=== PATIENT | female | born 1985 | race Caucasian/White ===

== ENCOUNTER 2020-06-07 17:45 | Emergency (ER) | payer OTHER ==
[2020-06-07 17:50] VITALS: TEMP 98.5
[2020-06-07] MEDS ORDERED: SODIUM CHLORIDE 0.9% 1,000 ML IV STA ×3 (18:03→19:18)
[2020-06-07] MEDS ORDERED: PYRIDOXINE 100 MG/ML 1 ML VIAL IVP STA (18:03)
[2020-06-07] MEDS ORDERED: PANTOPRAZOLE 40 MG/10 ML VIAL IVP STA (18:03)
[2020-06-07] MEDS ORDERED: diphenhydrAMINE 50 MG/ML 1 ML VIAL IVP STA (18:03)
[2020-06-07] MEDS ORDERED: ONDANSETRON 4 MG/2 ML VIAL IVP STA (18:03)
--- NOTE | 2020-06-07 18:04 | ED ---
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 Patient is no new pregnancies. She is wrong 6 weeks . No recent evaluations no prior evaluation is not taking anything at home for nausea and vomiting. No fevers no abdominal pain or vaginal bleeding MD complaint: nausea, vomiting -: days(s) Description of Vomiting: bloody Associated Abdominal Pain: No Radiation: none Severity: mild Severity scale (1-10): 2 Quality: aching Consistency: constant Improves with: none Worsens with: eating Associated Symptoms: loss of appetite, nausea/vomiting, weakness - Related Data Previous Rx's Medication Instructions Recorded Doxylamine Succinate [Unisom] 25 mg PO TID #90 tablet 06/07/20 Doxylamine Succinate/Vit B6 1 each PO BID #60 tab.ir.dr 06/07/20 [Bonjesta ER 20-20 mg Tablet] Pyridoxine [Vitamin B-6] 50 mg PO BID #60 tablet 06/07/20 Allergies Allergy/AdvReac Type Severity Reaction Status Date / Time No Known Allergies Allergy Verified 06/07/20 17:50 Review of Systems ROS Statement: Those systems with pertinent positive or pertinent negative responses have been documented in the HPI. ROS Other: All systems not noted in ROS Statement are negative. Past Medical History Past Medical History: No Reported History History of Any Multi-Drug Resistant Organisms: None Reported Past Surgical History: Breast Surgery, Section Past Psychological History: No Psychological Hx Reported Smoking Status: Never smoker Past Alcohol Use History: Occasional Past Drug Use History: None Reported General Exam Limitations: no limitations General appearance: alert, in no apparent distress Head exam: Present: atraumatic, normocephalic, normal inspection Eye exam: Present: normal appearance, PERRL, EOMI. Absent: scleral icterus, conjunctival injection, periorbital swelling ENT exam: Present: normal exam, mucous membranes moist Neck exam: Present: normal inspection. Absent: tenderness, meningismus, lymphadenopathy Respiratory exam: Present: normal lung sounds bilaterally. Absent: respiratory distress, wheezes, rales, rhonchi, stridor Cardiovascular Exam: Present: regular rate, normal rhythm, normal heart sounds. Absent: systolic murmur, diastolic murmur, rubs, gallop, clicks GI/Abdominal exam: Present: soft, normal bowel sounds. Absent: distended, t enderness, guarding, rebound, rigid Extremities exam: Present: normal inspection, full ROM, normal capillary refill. Absent: tenderness, pedal edema, joint swelling, calf tenderness Back exam: Present: normal inspection Neurological exam: Present: alert, oriented X3, CN II-XII intact Psychiatric exam: Present: normal affect, normal mood Skin exam: Present: warm, dry, intact, normal color. Absent: rash Course Vital Signs 06/07/20 06/07/20 17:48 19:35 Temperature 98.5 F Pulse Rate 73 70 Respiratory 16 18 Rate Blood Pressure 128/86 123/75 O2 Sat by Pulse 98 100 Oximetry - Reevaluation(s) Reevaluation #1: medical record is reviewed patient symptoms siginficantly improved informed patient of results, questions answered and ok for discharge, Medical Decision Making - Medical Decision Making 34 female with hyperemesis at 6 weeks of secondary to 20 gestation. Patient informed of results and can be discharged home - Lab Data Result diagrams: 06/07/20 18:27 06/07/20 18:27 Lab Results 06/07/20 06/07/20 06/07/20 Range/Units 18:27 18:27 18:27 WBC 9.8 (3.8-10.6) k/uL RBC 5.04 (3.80-5.40) m/uL Hgb 14.6 (11.4-16.0) gm/dL Hct 44.5 (34.0-46.0) % MCV 88.4 (80.0-100.0) fL MCH 29.0 (25.0-35.0) pg MCHC 32.8 (31.0-37.0) g/dL RDW 13.3 (11.5-15.5) % Plt Count 248 (150-450) k/uL Neutrophils % 79 % Lymphocytes % 16 % Monocytes % 3 % Eosinophils % 0 % Basophils % 0 % Neutrophils # 7.7 (1.3-7.7) k/uL Lymphocytes # 1.6 (1.0-4.8) k/uL Monocytes # 0.3 (0-1.0) k/uL Eosinophils # 0.0 (0-0.7) k/uL Basophils # 0.0 (0-0.2) k/uL PT 10.5 (9.0-12.0) sec INR 1.0 (<1.2) APTT 21.6 L (22.0-30.0) sec Sodium 134 L (137-145) mmol/L Potassium 3.8 (3.5-5.1) mmol/L Chloride 102 (98-107) mmol/L Carbon Dioxide 19 L (22-30) mmol/L Anion Gap 13 mmol/L BUN 9 (7-17) mg/dL Creatinine 0.55 (0.52-1.04) mg/dL Est GFR (CKD-EPI)AfAm >90 (>60 ml/min/1.73 sqM) Est GFR (CKD-EPI)NonAf >90 (>60 ml/min/1.73 sqM) Glucose 96 (74-99) mg/dL Calcium 9.6 (8.4-10.2) mg/dL Phosphorus 3.5 (2.5-4.5) mg/dL Magnesium 1.9 (1.6-2.3) mg/dL Total Bilirubin 0.7 (0.2-1.3) mg/dL AST 28 (14-36) U/L ALT 32 (4-34) U/L Alkaline Phosphatase 60 (38-126) U/L Total Protein 7.6 (6.3-8.2) g/dL Albumin 4.4 (3.5-5.0) g/dL HCG, Quant 939457.0 mIU/mL Urine Color Urine Appearance (Clear) Urine pH (5.0-8.0) Ur Specific [place] (1.001-1.035) Urine Protein (Negative) Urine Glucose (UA) (Negative) Urine Ketones (Negative) Urine Blood (Negative) Urine Nitrite (Negative) Urine Bilirubin (Negative) Urine Urobilinogen (<2.0) mg/dL Ur Leukocyte Esterase (Negative) Urine RBC (0-5) /hpf Urine WBC (0-5) /hpf Ur Squamous Epith Cells (0-4) /hpf Urine Bacteria (None) /hpf Urine Mucus (None) /hpf Urine HCG, Qual (Not Detectd) 06/07/20 06/07/20 Range/Units 18:31 18:31 WBC (3.8-10.6) k/uL RBC (3.80-5.40) m/uL Hgb (11.4-16.0) gm/dL Hct (34.0-46.0) % MCV (80.0-100.0) fL MCH (25.0-35.0) pg MCHC (31.0-37.0) g/dL RDW (11.5-15.5) % Plt Count (150-450) k/uL Neutrophils % % Lymphocytes % % Monocytes % % Eosinophils % % Basophils % % Neutrophils # (1.3-7.7) k/uL Lymphocytes # (1.0-4.8) k/uL Monocytes # (0-1.0) k/uL Eosinophils # (0-0.7) k/uL Basophils # (0-0.2) k/uL PT (9.0-12.0) sec INR (<1.2) APTT (22.0-30.0) sec Sodium (137-145) mmol/L Potassium (3.5-5.1) mmol/L Chloride (98-107) mmol/L Carbon Dioxide (22-30) mmol/L Anion Gap mmol/L BUN (7-17) mg/dL Creatinine (0.52-1.04) mg/dL Est GFR (CKD-EPI)AfAm (>60 ml/min/1.73 sqM) Est GFR (CKD-EPI)NonAf (>60 ml/min/1.73 sqM) Glucose (74-99) mg/dL Calcium (8.4-10.2) mg/dL Phosphorus (2.5-4.5) mg/dL Magnesium (1.6-2.3) mg/dL Total Bilirubin (0.2-1.3) mg/dL AST (14-36) U/L ALT (4-34) U/L Alkaline Phosphatase (38-126) U/L Total Protein (6.3-8.2) g/dL Albumin (3.5-5.0) g/dL HCG, Quant mIU/mL Urine Color Yellow Urine Appearance Cloudy H (Clear) Urine pH 6.0 (5.0-8.0) Ur Specific [place] 1.029 (1.001-1.035) Urine Protein 2+ H (Negative) Urine Glucose (UA) Negative (Negative) Urine Ketones 4+ H (Negative) Urine Blood Trace H (Negative) Urine Nitrite Negative (Negative) Urine Bilirubin 1+ H (Negative) Urine Urobilinogen 4.0 (<2.0) mg/dL Ur Leukocyte Esterase Small H (Negative) Urine RBC 7 H (0-5) /hpf Urine WBC 8 H (0-5) /hpf Ur Squamous Epith Cells 7 H (0-4) /hpf Urine Bacteria Rare H (None) /hpf Urine Mucus Many H (None) /hpf Urine HCG, Qual Detected (Not Detectd) - Radiology Data Radiology results: report reviewed (Ultrasound obstetric does show 6 week of 20 gestation), image reviewed Disposition Clinical Impression: Dehydration, Twin gestation in first trimester, Hyperemesis Disposition: HOME SELF-CARE Condition: Good Instructions (If sedation given, give patient instructions): Hyperemesis Gravidarum (ED) Prescriptions: Doxylamine Succinate/Vit B6 [Bonjesta ER 20-20 mg Tablet] 1 each PO BID #60 tab.ir. Doxylamine Succinate [Unisom] 25 mg PO TID #90 tablet Pyridoxine [Vitamin B-6] 50 mg PO BID #60 tablet Is patient prescribed a controlled substance at d/c from ED?: No Referrals: Elie Barton MD [STAFF PHYSICIAN] - 1-2 days None,Stated [Primary Care Provider] - 1-2 days
[2020-06-07 18:42] LABS: Basophils % (A) 0 %; Eosinophils % (A) 0 %; HCT 44.5 % (34.0-46.0); HGB 14.6 gm/dL (11.4-16.0); Lymphocytes # (A) 1.6 k/uL (1.0-4.8); Lymphocytes % (A) 16 %; MCHC 32.8 g/dL (31.0-37.0); MCV 88.4 fL (80.0-100.0); Monocytes # (A) 0.3 k/uL (0-1.0); Monocytes % (A) 3 %; Neutrophils # (A) 7.7 k/uL (1.3-7.7); Neutrophils % (A) 79 %; Platelet Count 248 k/uL (150-450); RBC 5.04 m/uL (3.80-5.40); RDW 13.3 % (11.5-15.5); WBC 9.8 k/uL (3.8-10.6)
[2020-06-07 18:53] LABS: ALT 32 U/L (4-34); AST 28 U/L (14-36); African American GFR (CKD) >90 (>60 ml/min/1.73 sqM); Albumin 4.4 g/dL (3.5-5.0); Alkaline Phosphatase 60 U/L (38-126); Anion Gap 13 mmol/L; Blood Urea Nitrogen 9 mg/dL (7-17); Calcium 9.6 mg/dL (8.4-10.2); Carbon Dioxide 19 mmol/L (22-30); Chloride 102 mmol/L (98-107); Glucose 96 mg/dL (74-99); Magnesium 1.9 mg/dL (1.6-2.3); Non-African American GFR(CKD) >90 (>60 ml/min/1.73 sqM); Phosphorus 3.5 mg/dL (2.5-4.5); Potassium 3.8 mmol/L (3.5-5.1); Sodium 134 mmol/L (137-145); Total Bilirubin 0.7 mg/dL (0.2-1.3); Total Protein 7.6 g/dL (6.3-8.2)
[2020-06-07 18:54] LABS: Appearance,Urine Cloudy (Clear); Bacteria,Urine Rare /hpf; Bilirubin,Urine 1+ (Negative); Blood,Urine Trace (Negative); Color,Urine Yellow; Glucose,Urine (UA) Negative (Negative); Ketones,Urine 4+ (Negative); Leukocyte Esterase,Urine Small (Negative); Mucus,Urine Many /hpf; Nitrite,Urine Negative (Negative); Protein,Urine 2+ (Negative); RBC,Urine 7 /hpf (0-5); Specific Gravity,Urine 1.029 (1.001-1.035); Squamous Epithelial Cell,Urine 7 /hpf (0-4); WBC,Urine 8 /hpf (0-5)
[2020-06-07 19:04] LABS: Prothrombin Time 10.5 sec (9.0-12.0)
[2020-06-07 19:17] LABS: Partial Thromboplastin Time 21.6 sec (22.0-30.0)
[2020-06-07] MEDS ORDERED: SODIUM CHLORIDE 0.9% 500 ML 500 ML IV STA (19:18)
[2020-06-07 19:37] VITALS: BP 123/75; PULSE 70; RESP 18
--- NOTE | 2020-06-07 20:08 | US ---
EXAMINATION TYPE: US OB<=14wk fetus twins/travag DATE OF EXAM: 06/07/2020 COMPARISON: NONE CLINICAL HISTORY: preg. Vomiting blood. Hx . . EXAM PERFORMED: Transvaginal (TV) and Transabdominal (TA) EXAM MEASUREMENTS: GESTATIONAL AGE / DATING Physician Established: Not yet established Dates by LMP: (6 weeks/6 days) EDC: 01/25/2021 Dates by First Scan: This is first scan Dates by Current Scan for Baby A: (6 weeks/5 days) EDC: 01/26/2021 Dates by Current Scan for Baby B: (6 weeks/5 days) EDC: 01/26/2021 MATERNAL ANATOMY Uterus: 10.0 x 7.2 x 6.1 cm. Right Ovary 2.4 x 2.0 x 1.6 cm. Left Ovary: 3.7 x 2.7 x 1.8 cm. Measures slightly enlarged. Anechoic area seen measurin.0 x 2.0 x 1.7 cm. Post CDS / Adnexa: Appear wnl Presence of free fluid: None seen Presence of corpus luteal cyst: Possible within left ovary as mentioned above as anechoic area seen. Presence of subchorionic bleed: Possible; heterogeneous area seen adjacent to gestational sac baby A measurin.7 x 0.9 x 1.1 cm. Presence of two separate gestational sacs: Yes GESTATION / SURVEY TWIN A CRL: 0.81 cm. (6wks/5days) Yolk Sac (normal less than 6mm): 2.7 mm. Heart Rate: 135 bpm, second measurement 132 bpm Rhythm: Normal IUP: Viable IUP Gestational sac for Baby A is toward the right and slightly inferior than gestational sac for Baby B. TWIN B CRL: 0.82 cm. (6wks/5days) Yolk Sac (normal less than 6mm): 1.7 mm. Heart Rate: 134 bpm, second measurement 137 bpm Rhythm: Normal IUP: Viable IUP Date of LMP: 04/20/2020 Beta HcG (if available): Detected IMPRESSION: There is a thick membrane the gestational sacs. This is a dichorionic diamniotic twin gest ation. No complicating process seen.
== END 2020-06-07 20:47 | disposition home or self-care (01) ==
LOC: EC 17:45
DX: O30.011 Twin pregnancy, monochorionic/monoamniotic, first trimester (principal); O99.281 Endocrine, nutritional and metabolic diseases complicating pregnancy, first trimester; E86.0 Dehydration; O21.9 Vomiting of pregnancy, unspecified; Z3A.01 Less than 8 weeks gestation of pregnancy
CPT/HCPCS: 36415; 80053; 83735; 84100; 85025; 85610; 85730; 81001; 81025; 84702; 76801; 76802; 76817; 99284; 96374; 96375 ×2; 96361 ×2; J1200; J2405; C9113